=== PATIENT | female | born 1985 | race Caucasian/White ===

== ENCOUNTER → 2017-07-14 | Outpatient (CLI) | payer OTHER ==
--- NOTE | 2017-07-14 11:48 | XR ---
EXAMINATION TYPE: XR femur RT, XR tibia fibula RT, XR knee complete RT DATE OF EXAM: 07/14/2017 CLINICAL HISTORY: Bruising following injury with pain TECHNIQUE: Two views of the right leg and femur are obtained. 3 views of right knee are acquired. COMPARISON: None FINDINGS: There is no acute fracture or dislocation seen in the right femur. The right hip joint ap pears within normal limits. The overlying soft tissue appears unremarkable. Images of right knee show no acute fracture or dislocation. The tricompartment joint spaces are prese rved. The overlying soft tissue is unremarkable. Images of right leg show no acute fracture or dislocation. The visualized right ankle joint appears w ithin normal limits. Overlying soft tissue is unremarkable. IMPRESSION: There is no acute fracture or dislocation in the right leg, knee, or femur.
== END | disposition home or self-care (01) ==
LOC: RADXRMAIN 11:04
PROVIDERS: ATTEND Family Medicine
DX: T79.8XXA Other early complications of trauma, initial encounter (principal)

== ENCOUNTER 2019-02-28 11:47 | Emergency (ER) | payer OTHER ==
[2019-02-28 11:57] VITALS: RESP 20
[2019-02-28] MEDS ORDERED: PROPARACAINE 0.5% OPHTH DROPS 15 ML BTL BOTH EYES STA (12:11)
--- NOTE | 2019-02-28 12:13 | ED ---
Eye Problem HPI - General Chief complaint: Eye Problems Stated complaint: Eyes burning from the claudia Time Seen by Provider: 02/28/19 12:00 Source: patient Mode of arrival: ambulatory - History of Present Illness Initial comments: 33-year-old female presents today for chief complaint of bilateral eye pain and redness. Patient states that she went in a tanning bed for 17 minutes yesterday, she states she was for currently opening her eyes. Patient states around 2:30 AM she woke up with bilateral eye redness and pain. She states her eyes been watering. She states due to the water denies blurred. Patient states she is supposed with glasses, does not. Patient denies contact lens use. Patient denies headache fever chills nausea vomiting night sweats. Patient was concerned she had burned her eyes and presents emergency department for evaluation. Upon arrival patient wearing sunglasses. Patient denies swelling around the eye or burning of the face or blisters of eyelids/skin Patient remaining review of systems negative. - Related Data Home Medications Medication Instructions Recorded Confirmed Dextroamphetamine/Amphetamine 30 mg PO BID 08/26/14 02/28/19 [Adderall] Previous Rx's Medication Instructions Recorded Erythromycin Ophth Oint [Romycin 1 applic BOTH EYES QID 3 Days #1 02/28/19 Ophth Oint] tube Allergies Allergy/AdvReac Type Severity Reaction Status Date / Time Latex, Natural Rubber Allergy Dyspnea Verified 02/28/19 12:13 Penicillins Allergy Anaphylaxis Verified 02/28/19 12:13 Review of Systems ROS Statement: Those systems with pertinent positive or pertinent negative responses have been documented in the HPI. ROS Other: All systems not noted in ROS Statement are negative. Past Medical History Past Medical History: No Reported History History of Any Multi-Drug Resistant Organisms: None Reported Additional Past Surgical History / Comment(s): D&C, Past Psychological History: ADD/ADHD Smoking Status: Current every day smoker Past Alcohol Use History: Occasional Past Drug Use History: None Reported General Exam - General Exam Comments Initial Comments: General: The patient is awake and alert, in no distress, and does not appear acutely ill. Eye: +3 mm pupils are equal, round and reactive to light, extra-ocular movements are intact. No nystagmus. There is normal conjunctiva bilaterally. Conjunctival injection is sparing the limbus. No cell and flare. No signs of icterus. Upon forcing examination there is no areas of uptake. Slit-lamp examination reveals no areas of clouding or foreign body. OD 20/55, OS 20/55, OU 20/55 Ears, nose, mouth and throat: There are moist mucous membranes and no oral lesions. Neck: The neck is supple, there is no tenderness or JVD. Cardiovascular: There is a regular rate and rhythm. No murmur, rub or gallop is appreciated. Respiratory: Lungs are clear to auscultation, respirations are non-labored, breath sounds are equal. No wheezes, stridor, rales, or rhonchi. Musculoskeletal: Normal ROM, no tenderness. Strength 5/5. Sensation intact. Radial pulses equal bilaterally 2+. Neurological: A&O x 3. CN II-XII intact, There are no obvious motor or sensory deficits. Coordination appears grossly intact. Speech is normal. Skin: Skin is warm and dry and no rashes or lesions are noted. Psychiatric: Cooperative, appropriate mood & affect, normal judgment. Course Vital Signs 02/28/19 02/28/19 11:54 13:15 Temperature 98.1 F 98.2 F Pulse Rate 105 H 88 Respiratory 20 20 Rate Blood Pressure 131/65 128/60 O2 Sat by Pulse 99 99 Oximetry - Reevaluation(s) Reevaluation #1: After administration of proparacaine patient states her pain has been relieved 02/28/19 12:42 Medical Decision Making - Medical Decision Making Appearing 33-year-old female presenting today for chief complaint of bilateral eye pain. Patient experiences after opening eyes in a tanning bed yesterday evening. Patient has significant photophobia and watering. Visual acuity 20/55 bilaterally. Patient is status post were glasses states she has not had eye examination in years. Patient has no evidence of iritis. No uptake on fluorescein examination. No evidence of scarring or clouding. At this time feel patient has a keratitis. Patient would be provided a prescription for erythromycin ointment and ophthalmology follow-up. Discussed case with attending provider Dr. Lobo who is agreeable with care plan. Disposition Clinical Impression: UV keratitis Disposition: HOME SELF-CARE Condition: Good Instructions (If sedation given, give patient instructions): Corneal Flash Bhardwaj (ED) Additional Instructions: Please use medication as discussed. Please follow-up with ophthalmology in the next 24-48 hours. Please return to emergency room if the symptoms increase or worsen or for any other concerns. Prescriptions: Erythromycin Ophth Oint [Romycin Ophth Oint] 1 applic BOTH EYES QID 3 Days #1 tube Is patient prescribed a controlled substance at d/c from ED?: No Referrals: James Jean MD [Primary Care Provider] - 1-2 days Ham Calderón MD [STAFF PHYSICIAN] - 1-2 days Time of Disposition: 13:07
[2019-02-28 13:17] VITALS: BP 128/60; PULSE 88; TEMP 98.2
== END 2019-02-28 13:15 | disposition home or self-care (01) ==
LOC: EC 11:47
DX: H16.133 Photokeratitis, bilateral (principal); F90.9 Attention-deficit hyperactivity disorder, unspecified type; F17.200 Nicotine dependence, unspecified, uncomplicated; Z79.899 Other long term (current) drug therapy; Z88.0 Allergy status to penicillin; Z91.040 Latex allergy status; Z91.048 Other nonmedicinal substance allergy status
CPT/HCPCS: 99283

== ENCOUNTER 2021-07-11 06:55 | Day surgery (SDC) | payer OTHER ==
[2021-07-08 14:40] VITALS: BMI 21.4
[~2021-07-11 06:55] MED LIST: DEXAMETHASONE SOD PHOSPHATE 4 MG/ML 1 ML VIAL IV ONE; LACTATED RINGERS 1,000 ML IV SCH; LIDOCAINE 1% (10MG/ML) FOR IV START INTRADERMA PRN; MIDAZOLAM 2 MG/2 ML VIAL IV PRN; ONDANSETRON 4 MG/2 ML VIAL IVP ONE; Pre Op ABX Message 1 EACH MISC MISCELLANE ONE
[2021-07-11] MEDS ORDERED: HYDROmorphone 0.5 MG/0.5 ML SYRINGE IVP PRN (07:00)
--- NOTE | 2021-07-11 07:13 | P.HPOB ---
History of Present Illness H&P Date: 07/11/21 Chief Complaint: left labial injury with hypertrophy 36 year old presents for left labiaplasty after a left labial injury and removal of mirena with reinsertion of kyleena to help control her endometriosis. Review of Systems All systems: negative Constitutional: Denies chills, Denies fever Eyes: denies blurred vision, denies pain Ears, nose, mouth and throat: Denies headache, Denies sore throat Cardiovascular: Denies chest pain, Denies shortness of breath Respiratory: Denies cough Gastrointestinal: Denies abdominal pain, Denies diarrhea, Denies nausea, Denies vomiting Genitourinary: Denies dysuria, Denies hematuria Musculoskeletal: Denies myalgias Integumentary: Denies pruritus, Denies rash Neurological: Denies numbness, Denies weakness Psychiatric: Denies anxiety, Denies depression Endocrine: Denies fatigue, Denies weight change Past Medical History Past Medical History: No Reported History Additional Past Medical History / Comment(s): endometriosis; dysmenorrhea History of Any Multi-Drug Resistant Organisms: None Reported Additional Past Surgical History / Comment(s): D&C, SINUS SX, DIAG. LAP EXAM FOR ENDOMETRIOSIS, LUMBAR INJECTIONS Past Anesthesia/Blood Transfusion Reactions: No Reported Reaction Smoking Status: Current every day smoker - Past Family History Mother Family Medical History: Cancer Father Family Medical History: Deep Vein Thrombosis (DVT) Medications and Allergies Home Medications Medication Instructions Recorded Confirmed Type Dextroamphetamine/Amphetamine 30 mg PO BID 08/26/14 07/08/21 History [Adderall] Acetaminophen [Tylenol Extra 500 - 1,000 mg PO DAILY PRN 07/08/21 07/08/21 History Strength] Ibuprofen/Acetaminophen [Advil 1 each PO DAILY PRN 07/08/21 07/08/21 History Dual Action 250Mg-125Mg] Allergies Allergy/AdvReac Type Severity Reaction Status Date / Time Latex, Natural Rubber Allergy Dyspnea Verified 07/08/21 14:22 Penicillins Allergy Anaphylaxis Verified 07/08/21 14:22 Exam Osteopathic Statement: *. No significant issues noted on an osteopathic structural exam other than those noted in the History and Physical/Consult. Heart: Regular rate and rhythm Lungs: Clear to auscultation bilaterally Abdomen: Soft, nontender Extremities: Negative Homans sign Assessment and Plan (1) Injury of vagina Current Visit: Yes Status: Acute Code(s): S39.93XA - UNSPECIFIED INJURY OF PELVIS, INITIAL ENCOUNTER SNOMED Code(s): 398188267 (2) Endometriosis Current Visit: Yes Status: Acute Code(s): N80.9 - ENDOMETRIOSIS, UNSPECIFIED SNOMED Code(s): 407768059 Plan: 1. left labiaplasty with removal of mirena and insertion of kyleena IUD.
[2021-07-11] MEDS ORDERED: fentaNYL (PF) 50 MCG/ML 2 ML AMP ONE (07:55)
[2021-07-11] MEDS ORDERED: MIDAZOLAM 2 MG/2 ML VIAL ONE (07:55)
[2021-07-11] MEDS ORDERED: LIDOCAINE 1% INJ 10MG/ML (20 ML MDV) ONE (07:55)
[2021-07-11] MEDS ORDERED: KETOROLAC 15 MG/ML 1 ML VIAL ONE (07:55)
[2021-07-11] MEDS ORDERED: PROPOFOL 10 MG/ML 20 ML VIAL IV ONE (07:55)
[2021-07-11] MEDS ORDERED: LIDOCAINE 1%-EPI 1:100,000 20 ML VIAL SQ ONE (08:16)
[2021-07-11 08:45] VITALS: RESP 16; TEMP 97.3
--- NOTE | 2021-07-11 08:46 | P.OP ---
Date of Procedure: 07/11/21 Preoperative Diagnosis: 1. left labial injury 2. endometriosis Postoperative Diagnosis: 1. left labial injury 2. endometriosis Procedure(s) Performed: Left labioplasty and removal of Mirena with reinsertion of Kyleena IUD Anesthesia: DIEGO Surgeon: Yanet Dickson Estimated Blood Loss (ml): 2 IV fluids (ml): 200 Urine output (ml): 15 Pathology: other (vulvar tissue) Condition: stable Disposition: PACU Operative Findings: Torn left labia with part of the left labia protruding out. Description of Procedure: Patient is taken the operating room where general anesthesia was obtained without difficulty. She is prepped and draped in normal sterile fashion dorsal lithotomy position, legs placed in candycane stirrups. Examination of the labia revealed a torn left labia and an area of the left labia that was protruding out. This is likely the cause of concern that is causing her to get more UTIs and have difficulty with urinating. This area was scored with the marker in a wedge fashion. 1% lidocaine with epinephrine was injected and a 15 blade was used to cut out that wedge. 3-0 Vicryl was used to bring the edges together subcuticular fashion. Hemostasis was assured. I then placed a weighted speculum and the anterior lip of the cervix was grasped with an Allis clamp. The Mirena IUD strings were grasped and IUD was removed. Uterus sounded to 8 cm. Kyleena is placed in normal sterile fashion. The entire procedure well. Sponge and instrument counts are correct 2. She is taken to recovery in stable condition.
[2021-07-11 09:43] VITALS: BP 130/83; PULSE 63
== END 2021-07-11 10:10 | disposition home or self-care (01) ==
LOC: OR 06:55
PROVIDERS: ATTEND Obstetrics & Gynecology
DX: N90.60 Unspecified hypertrophy of vulva (principal); L83 Acanthosis nigricans; N80.0 Endometriosis of uterus; F17.210 Nicotine dependence, cigarettes, uncomplicated; Z88.0 Allergy status to penicillin; Z91.040 Latex allergy status; Z87.440 Personal history of urinary (tract) infections
CPT/HCPCS: 56620; 58301; 58300; 81025; 88305; J2250; J1100; J2405; J2001; J3010; J1885; J2704; J1170

== ENCOUNTER 2021-07-11 20:36 | Emergency (ER) | payer OTHER ==
[2021-07-11 21:56] VITALS: PULSE 100
[2021-07-11] MEDS ORDERED: MORPHINE SULFATE 2 MG/ML SYRINGE IVP STA ×2 (22:13→22:37)
[2021-07-11] MEDS ORDERED: SODIUM CHLORIDE 0.9% 1,000 ML IV ONE (22:13)
--- NOTE | 2021-07-11 22:13 | ED ---
Female Urogenital HPI - General Chief complaint: Vaginal Bleeding Stated complaint: Abd Pain Time Seen by Provider: 07/11/21 22:02 Source: patient, RN notes reviewed, old records reviewed Mode of arrival: wheelchair - History of Present Illness Initial comments: This is a well-appearing 36-year-old female that is to the emergency room with pelvic pain and vaginal bleeding. She has surgical procedure to repair a left labial tear, labioplasty, and a removal of a Mirena with reinsertion of the Dede in the IUD. She states that when she got home she started to have some vaginal bleeding and pain and to call Dr. Dickson office and was told if the bleeding continued after 7 PM to go to the emergency room. She states that she is wearing a depends and she is changing it every half an hour to an hour with large clots. She denies any chest pain dizziness or shortness of breath. She also denies any fevers. She does have some nausea. MD Complaint: vaginal bleeding, pelvic pain -: hour(s) Location: labia Severity scale (1-10): 7 Quality: cramping Consistency: constant Improves with: none Worsens with: none Patient : No Associated Symptoms: vaginal bleeding - Related Data Home Medications Medication Instructions Recorded Confirmed Dextroamphetamine/Amphetamine 30 mg PO TID 08/26/14 07/11/21 [Adderall] Acetaminophen [Tylenol Extra 500 - 1,000 mg PO DAILY PRN 07/08/21 07/11/21 Strength] Ibuprofen/Acetaminophen [Advil 1 tab PO DAILY PRN 07/08/21 07/11/21 Dual Action 250Mg-125Mg] Ibuprofen [Motrin Ib] 600 mg PO Q8H PRN 07/11/21 07/11/21 traMADol HCl [Ultram] 50 mg PO TID PRN 07/11/21 07/11/21 Previous Rx's Medication Instructions Recorded HYDROcodone/APAP 7.5-325MG [[place] 1 tab PO Q6HR PRN 3 Days #12 tab 07/11/21 7.5-325] Allergies Allergy/AdvReac Type Severity Reaction Status Date / Time Latex, Natural Rubber Allergy Dyspnea Verified 07/11/21 21:56 Penicillins Allergy Anaphylaxis Verified 07/11/21 21:56 Review of Systems ROS Statement: Those systems with pertinent positive or pertinent negative responses have been documented in the HPI. ROS Other: All systems not noted in ROS Statement are negative. Past Medical History Past Medical History: No Reported History Additional Past Medical History / Comment(s): endometriosis; dysmenorrhea History of Any Multi-Drug Resistant Organisms: None Reported Additional Past Surgical History / Comment(s): D&C, SINUS SX, DIAG. LAP EXAM FOR ENDOMETRIOSIS, LUMBAR INJECTIONS Past Anesthesia/Blood Transfusion Reactions: No Reported Reaction Past Psychological History: ADD/ADHD Smoking Status: Current every day smoker Past Alcohol Use History: None Reported Past Drug Use History: None Reported - Past Family History Mother Family Medical History: Cancer Father Family Medical History: Deep Vein Thrombosis (DVT) General Exam General appearance: alert, in no apparent distress Head exam: Present: atraumatic, normocephalic, normal inspection Eye exam: Present: normal appearance, PERRL, EOMI. Absent: scleral icterus, conjunctival injection, periorbital swelling ENT exam: Present: normal exam, normal oropharynx, mucous membranes moist, other (Abrasion to the uvula she states occurred during surgical procedure today) Neck exam: Present: normal inspection, full ROM. Absent: tenderness, meningismus, lymphadenopathy, thyromegaly Respiratory exam: Present: normal lung sounds bilaterally. Absent: respiratory distress, wheezes, rales, rhonchi, stridor, accessory muscle use Cardiovascular Exam: Present: tachycardia. Absent: JVD GI/Abdominal exam: Present: soft, normal bowel sounds. Absent: distended, tende rness, guarding, rebound, rigid External exam: Present: other (Surgical incision with sutures intact no hematoma). Absent: erythema, swelling Speculum exam: Present: vaginal bleeding (Scant), other (Could not tolerate speculum exam). Absent: erythema By manual exam: Present: adnexal tenderness, other Extremities exam: Present: normal inspection, full ROM, normal capillary refill. Absent: tenderness, pedal edema, joint swelling, calf tenderness Back exam: Present: normal inspection, full ROM. Absent: tenderness, CVA tenderness (R), CVA tenderness (L) Neurological exam: Present: alert, oriented X3, CN II-XII intact Psychiatric exam: Present: normal affect, normal mood Skin exam: Present: warm, dry, intact, normal color. Absent: rash, cyanosis, diaphoretic, petechiae, pallor Course Vital Signs 07/11/21 21:47 Temperature 98.2 F Pulse Rate 100 Respiratory 19 Rate Blood Pressure 130/82 O2 Sat by Pulse 98 Oximetry Medical Decision Making - Medical Decision Making Hemoglobin and hematocrit is 12.7 and 38.1 respectively. Upon bimanual exam there is a scant amount of bleeding noted. no clots. The depends and pad that she was wearing had just a scant amount of bleeding. Vital signs are stable. Her abdomen is soft and she is afebrile. Ultrasound shows IUD in fairly good position. She has a 2.5 cm left ovarian cyst with no evidence of ovarian torsion or solid adenexal mass. The patient's pain is at the left adnexa. She'll be discharged home to follow up with her NURSE TECH. Patient is agreeable to this plan of care, states that she was given [place] at discharge today to take after her procedure. She was also advised to try warm compresses for pain. Case discussed with Dr. Buitrago - Lab Data Result diagrams: 07/11/21 22:45 Lab Results 07/11/21 07/11/21 Range/Units 22:22 22:45 WBC 11.1 H (3.8-10.6) k/uL RBC 4.06 (3.80-5.40) m/uL Hgb 12.7 (11.4-16.0) gm/dL Hct 38.1 (34.0-46.0) % MCV 93.8 (80.0-100.0) fL MCH 31.3 (25.0-35.0) pg MCHC 33.4 (31.0-37.0) g/dL RDW 13.1 (11.5-15.5) % Plt Count 273 (150-450) k/uL MPV 8.6 Neutrophils % 85 % Lymphocytes % 10 % Monocytes % 4 % Eosinophils % 1 % Basophils % 0 % Neutrophils # 9.4 H (1.3-7.7) k/uL Lymphocytes # 1.1 (1.0-4.8) k/uL Monocytes # 0.5 (0-1.0) k/uL Eosinophils # 0.1 (0-0.7) k/uL Basophils # 0.0 (0-0.2) k/uL Urine Color Light Yellow Urine Appearance Clear (Clear) Urine pH 6.5 (5.0-8.0) Ur Specific [place] 1.001 (1.001-1.035) Urine Protein Negative (Negative) Urine Glucose (UA) Negative (Negative) Urine Ketones Negative (Negative) Urine Blood Large H (Negative) Urine Nitrite Negative (Negative) Urine Bilirubin Negative (Negative) Urine Urobilinogen <2.0 (<2.0) mg/dL Ur Leukocyte Esterase Trace H (Negative) Urine RBC <1 (0-5) /hpf Urine WBC <1 (0-5) /hpf Ur Squamous Epith Cells <1 (0-4) /hpf Urine Bacteria Rare H (None) /hpf Disposition Clinical Impression: Vaginal bleeding, Ovarian cyst Disposition: HOME SELF-CARE Condition: Good Instructions (If sedation given, give patient instructions): Pelvic Pain in Women (ED), Ovarian Cyst (ED) Additional Instructions: Follow-up with your NURSE TECH within the next 5 days. Return to the emergency room with any new or worsening symptoms including increased pain, heavy vaginal bleeding, dizziness, shortness of breath or fevers. Is patient prescribed a controlled substance at d/c from ED?: No Referrals: James Jean MD [Primary Care Provider] - 1-2 days Yanet Dickson DO [Doctor of Osteopathic Medicine] - 1-2 days Time of Disposition: 23:53
[2021-07-11 22:35] LABS: Appearance,Urine Clear (Clear); Bacteria,Urine Rare /hpf; Bilirubin,Urine Negative (Negative); Blood,Urine Large (Negative); Color,Urine Light Yellow; Glucose,Urine (UA) Negative (Negative); Ketones,Urine Negative (Negative); Leukocyte Esterase,Urine Trace (Negative); Nitrite,Urine Negative (Negative); PH, Urine 6.5 (5.0-8.0); Protein,Urine Negative (Negative); RBC,Urine <1 /hpf (0-5); Specific Gravity,Urine 1.001 (1.001-1.035); Squamous Epithelial Cell,Urine <1 /hpf (0-4); Urobilinogen,Urine <2.0 mg/dL (<2.0); WBC,Urine <1 /hpf (0-5)
[2021-07-11] MEDS ORDERED: ONDANSETRON 4 MG/2 ML VIAL IVP STA (22:35)
[2021-07-11] MEDS ORDERED: SODIUM CHLORIDE 0.9% 1,000 ML IV STA (22:38)
[2021-07-11 23:08] LABS: Basophils % (A) 0 %; Eosinophils # (A) 0.1 k/uL (0-0.7); Eosinophils % (A) 1 %; HCT 38.1 % (34.0-46.0); HGB 12.7 gm/dL (11.4-16.0); Lymphocytes # (A) 1.1 k/uL (1.0-4.8); Lymphocytes % (A) 10 %; MCH 31.3 pg (25.0-35.0); MCHC 33.4 g/dL (31.0-37.0); MCV 93.8 fL (80.0-100.0); Mean Platelet Volume 8.6; Monocytes # (A) 0.5 k/uL (0-1.0); Monocytes % (A) 4 %; Neutrophils # (A) 9.4 k/uL (1.3-7.7); Neutrophils % (A) 85 %; Platelet Count 273 k/uL (150-450); RBC 4.06 m/uL (3.80-5.40); RDW 13.1 % (11.5-15.5); WBC 11.1 k/uL (3.8-10.6)
--- NOTE | 2021-07-11 23:46 | US ---
EXAMINATION TYPE: US pelvic limited DATE OF EXAM: 07/11/2021 COMPARISON: NONE CLINICAL HISTORY: pain. EC patient with severe pelvic pain and heavy vaginal bleeding post copper IUD insertion today; patient stated also had left labial surgery today; patient unsure shape of IUD; G7P 3; endometrial ablation x 2 per patient; D&C in past TECHNIQUE: Transvaginal (TV). Transvaginal sonographic images were medically necessary to better as sess the following anatomy: IUD placement Date of LMP: years ago EXAM MEASUREMENTS: Uterus: 8.1 x 4.2 x 3.0 cm Endometrial Stripe: not seen with history of endometrial ablation x 2; heterogeneous appearance to up per inner uterus Right Ovary: 3.0 x 1.6 x 1.6 cm Left Ovary: 4.2 x 2.8 x 3.1 cm 1. Uterus: Anteverted; IUD noted mid uterus 2. Endometrium: not identified 3. Right Ovary: multiple small follicles 4. Left Ovary: multifollicular with largest = 2.5 x 2.5 x 2.0cm with peripheral ring of color flow noted. Spectral, color and waveform doppler imaging shows good arterial and venous flow within the ovaries ; there is no evidence for ovarian torsion. 5. Bilateral Adnexa: wnl 6. Posterior cul-de-sac: wnl IMPRESSION: IUD appears in fairly good position. 2.5 cm left ovarian cyst. No solid adnexal mass. No evidence of ovarian torsion.
[2021-07-12 00:54] VITALS: BP 128/80; RESP 18; TEMP 97.8
== END 2021-07-12 00:53 | disposition home or self-care (01) ==
LOC: EC 20:36
DX: N83.202 Unspecified ovarian cyst, left side (principal); N93.9 Abnormal uterine and vaginal bleeding, unspecified; F90.9 Attention-deficit hyperactivity disorder, unspecified type; F17.200 Nicotine dependence, unspecified, uncomplicated; Z79.1 Long term (current) use of non-steroidal anti-inflammatories (NSAID); Z79.899 Other long term (current) drug therapy; Z88.0 Allergy status to penicillin
CPT/HCPCS: 36415; 85025; 81001; 93975; 76830; 96374; 96375; 96361; 99284; J2405; J2270

== ENCOUNTER 2022-05-26 13:41 | Day surgery (SDC) | payer OTHER ==
[2022-05-22 13:26] VITALS: BMI 21.1
--- NOTE | 2022-05-25 13:06 | P.HPOR ---
History of Present Illness H&P Date: 05/25/22 Chief Complaint: Right scaphoid fracture Subjective: This is a 36 year old female that presents today for initial evaluation regarding a right wrist injury that occurred on 05/18/22 while trying to catch her phone that was falling when she fell backwards and landed on to an outstretched hand. She was seen at her PCP office and X-rays were ordered. She has been in a splint since her injury. She has pain and swelling along the wrist and denies any numbness. She works as a county commissioner. Physical Examination: RUE: AIN/PIN/Radial/Ulnar/Median motor intact. Radial/Ulnar/Median SILT. 2+/4 Radial/Ulnar pulses palpated. 5/5 APB, 5/5 FDI. Negative Finkelsteins, negative CMC grind, negative Durkan's compression. TTP over volar scaphoid nose. Bruising, swelling present over radial wrist. Remainder of exam limited due to pain. Imaging: X-Rays of the right wrist demonstrate a complete fracture at the waist of the scaphoid with 1mm of displacement, no humpback deformity present. Impression: 1.) Right scaphoid waist fracture Plan: Diagnosis and treatment options were discussed with the patient. We discussed risks and benefits of operative vs non operative treatment with cast immobilization. Due to the patient wanting to get back to work quicker and have a better chance at achieving quicker union to get back to work she would like to pursue surgical intervention. Risks and benefits of surgery including bleeding, infection, damage to surrounding tissue, need for further surgery, residual numbness were discussed and the patient wished to go forward with surgery. She will likely require 6 to 8 weeks off of work after surgery or left handed work only until lorri union is achieved. She will be scheduled for right scaphoid ORIF in the near future. She is placed in a thumb spica brace and is to be non- weight bearing. -Guille Roblero DO Orthopedic Hand/Upper Extremity Surgeon Past Medical History Past Medical History: No Reported History, Cancer, Fibromyalgia, Hypertension, Pneumonia Additional Past Medical History / Comment(s): hx endometriosis; migraines, skin cancer, fell and fx rt wrist 05/16/22(has brace) History of Any Multi-Drug Resistant Organisms: None Reported Additional Past Surgical History / Comment(s): D&C, SINUS SX, DIAG. LAP EXAM FOR ENDOMETRIOSIS, LUMBAR INJECTIONS, labioplasty Past Anesthesia/Blood Transfusion Reactions: Previous Problems w/ Anesthesia, Postoperative Nausea & Vomiting (PONV) Additional Past Anesthesia/Blood Transfusion Reaction / Comment(s): had epidural during labor and passed out Smoking Status: Current every day smoker - Past Family History Mother Family Medical History: Cancer Father Family Medical History: Deep Vein Thrombosis (DVT) Medications and Allergies Home Medications Medication Instructions Recorded Confirmed Type Dextroamphetamine/Amphetamine 30 mg PO TID 08/26/14 05/22/22 History [Adderall] Acetaminophen-Codeine 300-30mg 1 tab PO Q6H PRN 05/22/22 05/22/22 History [Tylenol w/codeine #3] HYDROcodone/APAP 5-325MG [[place] 1 tab PO DIRECTED PRN 05/22/22 05/22/22 History 5-325] Ibuprofen [Advil] 200 mg PO Q8HR PRN 05/22/22 05/22/22 History Propranolol [Inderal] 10 mg PO HS 05/22/22 05/22/22 History Allergies Allergy/AdvReac Type Severity Reaction Status Date / Time Latex, Natural Rubber Allergy Severe Dyspnea/hives/throat Verified 05/22/22 13:14 swelled amoxicillin Allergy Rapid Verified 05/22/22 13:14 Heart Rate Penicillins Allergy Anaphylaxis Verified 05/22/22 13:14 Physical Examination Osteopathic Statement: *. No significant issues noted on an osteopathic structural exam other than those noted in the History and Physical/Consult.
[~2022-05-26 13:41] MED LIST changes: +HYDROmorphone 0.5 MG/0.5 ML SYRINGE IVP PRN; -Pre Op ABX Message 1 EACH MISC MISCELLANE ONE
[2022-05-26 14:00] VITALS: TEMP 97.7
[2022-05-26] MEDS ORDERED: MIDAZOLAM 2 MG/2 ML VIAL IVP ONE (15:03)
[2022-05-26] MEDS ORDERED: fentaNYL (PF) 50 MCG/ML 2 ML AMP IVP ONE (15:05)
[2022-05-26] MEDS ORDERED: ROPIVACAINE 5 MG/ML 30 ML VIAL ONE (15:33)
[2022-05-26] MEDS ORDERED: PROPOFOL 10 MG/ML 20 ML VIAL IV ONE (15:33)
[2022-05-26] MEDS ORDERED: LIDOCAINE 2% INJ 20 MG/ML (2 ML VIAL) ONE (15:33)
[2022-05-26] MEDS ORDERED: DEXAMETHASONE SOD PHOSPHATE 10 MG/ML 1 ML VIAL ONE (15:33)
[2022-05-26] MEDS ORDERED: SODIUM CHLORIDE 0.9% (PF) 10 ML VIAL ONE (15:33)
[2022-05-26] MEDS ORDERED: fentaNYL (PF) 50 MCG/ML 2 ML AMP ONE (15:33)
[2022-05-26] MEDS ORDERED: MIDAZOLAM 2 MG/2 ML VIAL ONE (15:33)
[2022-05-26] MEDS ORDERED: KETOROLAC 15 MG/ML 1 ML VIAL ONE (15:33)
[2022-05-26 16:55] VITALS: RESP 16
--- NOTE | 2022-05-26 17:31 | P.ANPRN ---
Procedure Note - Anesthesia - Nerve Block Performed Right Supraclavicular Single Time Out Performed: Yes ([id number]) Date of Procedure: 05/26/22 Procedure Start Time: 15:03 Procedure Stop Time: 10:08 Location of Patient: PreOp Indication: Acute Post-Operative Pain, Requested by Surgeon Sedation Type: Sedate with meaningful contact maintained Preparation: Sterile Prep, Sterile Dressing Position: Sitting Catheter: None Needle Types: Pajunk Needle Gauge: 21 Ultrasound used to visualize needle placement: Yes Ultrasound used to observe medication spread: Yes Injectate: Other (see comment) (20 ml of 0.5% ropivacaine, and 5 ml of 0.9% NaCl PF mixture) Blood Aspirated: No Pain Paresthesia on Injection Noted: No Resistance on Injection: Normal Image Stored and Saved: Yes Events: Uneventful and Well Tolerated
[2022-05-26 17:45] VITALS: BP 148/95; PULSE 80
--- NOTE | 2022-05-26 20:13 | P.OP ---
Date of Procedure: 05/26/22 Preoperative Diagnosis: Right scaphoid waist fracture Postoperative Diagnosis: Right scaphoid waist fracture Procedure(s) Performed: Right scaphoid ORIF with headless compression screw fixation. Implants: Arthrex Mini FT headless compression screw 20/2.5mm Anesthesia: regional Surgeon: Guille Roblero Estimated Blood Loss (ml): 0 Pathology: none sent Condition: stable Disposition: PACU Description of Procedure: This is a 36 year old female who presents today for surgical intervention on her right scaphoid waist fracture. Risks and benefits of surgery were discussed with the patient including bleeding, damage to surrounding tissue, infection, need fo r further surgery as well as risks of anesthesia including pulmonary embolism and even and the patient wished to proceed with surgical intervention. The patient was seen in the pre-operative area by myself. Consent and H&P were completed and updated. The correct extremity was marked in the pre-operative area by myself and all other questions were answered. Operative Narrative: The patient was brought to the operating room by the department of anesthesia. They remained on the portable stretcher and a rolling hand table was brought to the side of the operative extremity. Pre-operative time out was performed indicating the correct patient, procedure and laterality. All in the room agreed. Pre-operative antibiotics were given prior to skin incision. The patient was then drifted off to sleep by the department of anesthesia. A nonsterile tourniquet was then applied to the operative extremity and the right upper extremity was then prepped and draped in normal sterile fashion. The operative extremity was the exsanguinated with an esmarch bandage and the tourniquet was inflated to 250mmHg. Under direct fluoroscopic imaging the starting point for the guide pin K-wire was determined for volar entrance to the scaphoid nose located just volar to the trapezium. Entrance point was confirmed on AP/Lat and oblique views and the guide-wire was advanced to the proximal pole of the scaphoid. Imaging was then utilized to confirm center/center placement in the scaphoid. The dept gauge was then utilized to determine the screw length, 4mm was subtracted from this measurement. 15 blade scalpel was then utilized to make a small incision on the volar palm at the site of the k-wire entry point. Over drill was performed of the near cortex to allow for screw entry. An Arthrex Micro 20mm compression FT screw was then inserted from distal to proximal while simultaneously taking flouro images to confirm screw advancement and no advancement of the k-wire. Compression across the fracture site was appreciated. Final imaging was taken confirming center/center screw placement and extra-articular placement of the screw. The wound was then closed with a steri strip, 4x4s, cast padding and a thumb spica splint. Tourniquet was let down and the hand had immediate perfusion. The patient was then woken by the department of anesthesia and tr ansferred to PACU in stable condition. Guille Roblero D.O. Orthopedic Hand/Upper Extremity Surgeon
== END 2022-05-26 17:56 | disposition home or self-care (01) ==
LOC: OR 13:41
PROVIDERS: ATTEND Orthopaedic Surgery Hand Surgery
DX: S62.001A Unspecified fracture of navicular [scaphoid] bone of right wrist, initial encounter for closed fracture (principal); G89.18 Other acute postprocedural pain; I10 Essential (primary) hypertension; F98.8 Other specified behavioral and emotional disorders with onset usually occurring in childhood and adolescence; F17.200 Nicotine dependence, unspecified, uncomplicated; Z88.0 Allergy status to penicillin; Z91.040 Latex allergy status; Z91.09 Other allergy status, other than to drugs and biological substances; Z79.899 Other long term (current) drug therapy; Z80.9 Family history of malignant neoplasm, unspecified; Z82.49 Family history of ischemic heart disease and other diseases of the circulatory system; W19.XXXA Unspecified fall, initial encounter; M79.7 Fibromyalgia; Z85.828 Personal history of other malignant neoplasm of skin; G43.909 Migraine, unspecified, not intractable, without status migrainosus
CPT/HCPCS: 81025; 64415; 76942; 25628; C1713; J2250; J1100 ×2; J2405; J0690; J3010; J2795; J1885; J2704; J2001

== ENCOUNTER 2024-08-30 20:02 | Emergency (ER) | payer OTHER ==
[2024-08-30] MEDS: KETOROLAC 15 MG/ML 1 ML VIAL IM STA (21:04)
--- NOTE | 2024-08-30 21:52 | ED ---
General Adult HPI - General Chief complaint: Extremity Injury, Lower Stated complaint: Lft foot injury Time Seen by Provider: 08/30/24 20:16 Source: patient, RN notes reviewed Mode of arrival: wheelchair Limitations: no limitations - History of Present Illness Initial comments: 39-year-old female presents to the emergency department for evaluation of left foot injury. Patient states that she was chopping wood with the log fell onto her foot. States that this occurred last night. She notes that since that the top of her foot has been very uncomfortable. She has been utilizing Tylenol and Motrin without relief. She denies any numbness, tingling. She notes that it is a throbbing sensation in her foot. Denies any other injury. - Related Data Home Medications Medication Instructions Recorded Confirmed Dextroamphetamine/Amphetamine 30 mg PO TID 08/26/14 05/22/22 [Adderall] Acetaminophen-Codeine 300-30mg 1 tab PO Q6H PRN 05/22/22 05/26/22 [Tylenol w/codeine #3] HYDROcodone/APAP 5-325MG [[place] 1 tab PO DIRECTED PRN 05/22/22 05/26/22 5-325] Ibuprofen [Advil] 200 mg PO Q8HR PRN 05/22/22 05/22/22 Propranolol [Inderal] 10 mg PO HS 05/22/22 05/26/22 Allergies Allergy/AdvReac Type Severity Reaction Status Date / Time Latex, Natural Rubber Allergy Severe Dyspnea/hives/throat Verified 08/30/24 20:05 swelled amoxicillin Allergy Rapid Verified 08/30/24 20:05 Heart Rate Penicillins Allergy Anaphylaxis Verified 08/30/24 20:05 Review of Systems ROS Statement: Those systems with pertinent positive or pertinent negative responses have been documented in the HPI. ROS Other: All systems not noted in ROS Statement are negative. Past Medical History Past Medical History: No Reported History, Cancer, Fibromyalgia, Hypertension, Pneumonia Additional Past Medical History / Comment(s): hx endometriosis; migraines, skin cancer, fell and fx rt wrist 05/16/22(has brace) History of Any Multi-Drug Resistant Organisms: None Reported Past Surgical History: Orthopedic Surgery Additional Past Surgical History / Comment(s): D&C, SINUS SX, DIAG. LAP EXAM FOR ENDOMETRIOSIS, LUMBAR INJECTIONS, labioplasty, right hand Past Anesthesia/Blood Transfusion Reactions: Previous Problems w/ Anesthesia, Postoperative Nausea & Vomiting (PONV) Additional Past Anesthesia/Blood Transfusion Reaction / Comment(s): had epidural during labor and passed out Past Psychological History: ADD/ADHD Smoking Status: Current every day smoker Past Alcohol Use History: Occasional Past Drug Use History: None Reported - Past Family History Mother Family Medical History: Cancer Father Family Medical History: Deep Vein Thrombosis (DVT) General Exam Limitations: no limitations General appearance: alert, in no apparent distress Head exam: Present: atraumatic, normocephalic, normal inspection Eye exam: Present: normal appearance, PERRL, EOMI. Absent: scleral icterus, conjunctival injection, periorbital swelling Respiratory exam: Present: normal lung sounds bilaterally. Absent: respiratory distress, wheezes, rales, rhonchi, stridor Cardiovascular Exam: Present: regular rate, normal rhythm, normal heart sounds. Absent: systolic murmur, diastolic murmur, rubs, gallop, clicks Extremities exam: Present: normal capillary refill, other (DP and PT pulses 2+, sensation intact, ecchymosis to the first toe of the left foot). Absent: full ROM (Decreased range of motion of the toes due to pain and swelling), tenderness, pedal edema, joint swelling, calf tenderness Neurological exam: Present: alert, oriented X3 Psychiatric exam: Present: normal affect, normal mood Skin exam: Present: warm, dry, intact, other (Ecchymosis to the left first toe). Absent: normal color Course Vital Signs 08/30/24 08/30/24 20:05 22:13 Temperature 97.6 F 97.9 F Pulse Rate 85 74 Respiratory 16 18 Rate Blood Pressure 145/94 140/82 O2 Sat by Pulse 98 97 Oximetry Medical Decision Making - Medical Decision Making Was pt. sent in by a medical professional or institution (, PA, [employer], urgent care, hospital, or alf...) When possible be specific @ -No Did you speak to anyone other than the patient for history (EMS, parent, family, police, friend...)? What history was obtained from this source @ -No Did you review nursing and triage notes (agree or disagree)? Why? @ -I reviewed and agree with nursing and triage notes Were old charts reviewed (outside hosp., previous admission, EMS record, old EKG, old radiological studies, urgent care reports/EKG's, alf records)? Report findings @ -No old charts were reviewed Differential Diagnosis (chest pain, altered mental status, abdominal pain women, abdominal pain men, vaginal bleeding, weakness, fever, dyspnea, syncope, headache, dizziness, GI bleed, back pain, seizure, CVA, palpatations, mental health, musculoskeletal)? @ -Differential Musculoskeletal Muscular strain, contusion, ligament sprain, fracture, arthritis, septic arthritis, bursitis, cellulitis, muscle spasm, nerve compression, DVT, arterial occlusion, herpes zoster, electrolyte abnormality, tumor.... This is not meant to be in all inclusive list EKG interpreted by me (3pts min.). @ -None X-rays interpreted by me (1pt min.). @ -X-ray of the left foot shows no evidence of acute fracture or dislocation CT interpreted by me (1pt min.). @ -None done U/S interpreted by me (1pt. min.). @ -None done What testing was considered but not performed or refused? (CT, X-rays, U/S, labs)? Why? @ -None What meds were considered but not given or refused? Why? @ -None Did you discuss the management of the patient with other professionals (professionals i.e. , PA, [employer], lab, RT, psych nurse, drug abuse social worker, camera assembler, teacher, aviation safety officer, catalytic case operator)? Give summary @ -No Was smoking cessation discussed for >3mins.? @ -No Was critical care preformed (if so, how long)? @ -No Were there social determinants of health that impacted care today? How? (Homelessness, low income, unemployed, alcoholism, drug addiction, transportation, low edu. Level, literacy, decrease access to med. care, long-term, rehab)? @ -No Was there de-escalation of care discussed even if they declined (Discuss DNR or withdrawal of care, Hospice)? DNR status @ -No What co-morbidities impacted this encounter? (DM, HTN, Smoking, COPD, CAD, Cancer, CVA, ARF, Chemo, Hep., AIDS, mental health diagnosis, sleep apnea, morbid obesity)? @ -None Was patient admitted / discharged? Hospital course, mention meds given and route, prescriptions, significant lab abnormalities, going to OR and other pertinent info. @ -Discharge. Patient presented to the emergency department for evaluation of left foot injury. X-rays obtained revealing no evidence of acute fracture or dislocation. Patient distally neurovascularly intact. Patient was placed in an orthopedic shoe. Advised rest, ice, elevation, anti-inflammatory medications and to follow-up with her primary care provider. Patient is understanding agreeable plan. Patient stable at time of discharge. Case discussed with Dr. Solis Undiagnosed new problem with uncertain prognosis? @ -No Drug Therapy requiring intensive monitoring for toxicity (Heparin, Nitro, Insulin, Cardizem)? @ -No Were any procedures done? @ -No Diagnosis/symptom? @ -Foot contusion Acute, or Chronic, or Acute on Chronic? @ -Acute Uncomplicated (without systemic symptoms) or Complicated (systemic symptoms)? @ -Uncomplicated Side effects of treatment? @ -No Exacerbation, Progression, or Severe Exacerbation? @ -No Poses a threat to life or bodily function? How? (Chest pain, [place], AR, pneumonia, PE, COPD, DKA, ARF, appy, cholecystitis, CVA, Diverticulitis, Homicidal, Suicidal, threat to staff... and all critical care pts) @ -No Disposition Clinical Impression: Foot contusion Disposition: HOME SELF-CARE Condition: Stable Instructions (If sedation given, give patient instructions): Foot Contusion (ED) Additional Instructions: Please follow up with your primary care provider. Return to the emergency department for new or worsening symptoms. Is patient prescribed a controlled substance at d/c from ED?: No Referrals: James Jean MD [Primary Care Provider] - 1-2 days
--- NOTE | 2024-08-30 21:54 | XR ---
EXAMINATION TYPE: XR foot complete LT DATE OF EXAM: 08/30/2024 9:24 PM COMPARISON: None CLINICAL INDICATION: Female, 39 years old with history of pain, 1-3 metatarsal, phalanx; [facility] TECHNIQUE: XR foot complete LT examined in the AP, oblique, and lateral projections. FINDINGS: No evidence of any acute osseous pathology. Incidental note is made of symphalangism of the fifth dis john interphalangeal joint. IMPRESSION: No evidence of acute fracture. [facility], , 08/30/2024 9:51 PM
[2024-08-30 22:23] VITALS: BP 140/82; PULSE 74; RESP 18; TEMP 97.9
[2024-08-30] MEDS: HYDROmorphone 1 MG/ML 1 ML SYRINGE IM STA (22:28)
[2024-08-30] MEDS: ACET/COD 300 MG/30 MG STARTER PACK 6 TAB BTL PO STA (22:32)
== END 2024-08-30 22:43 | disposition home or self-care (01) ==
LOC: EC 20:02
DX: S90.32XA Contusion of left foot, initial encounter (principal); F17.200 Nicotine dependence, unspecified, uncomplicated; Z88.0 Allergy status to penicillin; Z91.040 Latex allergy status; Z88.8 Allergy status to other drugs, medicaments and biological substances; W20.8XXA Other cause of strike by thrown, projected or falling object, initial encounter
CPT/HCPCS: 73630; 99283; 96372 ×2; J1171; J1885